=== PATIENT | female | born 1990 | race African-American/Black ===

== ENCOUNTER 2017-07-25 16:53 | Emergency (ER) | payer OTHER ==
[2017-07-25] MEDS ORDERED: IBUPROFEN 800 MG TABLET PO ONE (17:15)
--- NOTE | 2017-07-25 17:15 | ER Document Report ---
ED GI/ - General Chief Complaint: Pelvic Pain Stated Complaint: PELVIC PAIN Time Seen by Provider: 07/25/17 17:10 Mode of Arrival: Ambulatory Information source: Patient Notes: Patient is a 26-year-old female who presents to the ER today for right lower quadrant abdominal pain. Patient admits to knowing that she has a cyst on that right ovary, has a history of a left ovarian torsion and had surgery to remove the left ovary. She admits that she saw the [employer] 2 days ago and they placed her on MetroGel for bacterial vaginosis. She admits to some white vaginal discharge. She has not started the MetroGel yet. She denies any back pain, history of kidney stones, hematuria, fever, chills, nausea, vomiting. TRAVEL OUTSIDE OF THE [place] IN LAST 30 DAYS: No - Related Data Allergies/Adverse Reactions: john Allergy (Verified 07/25/17 16:53) Past Medical History - General Information source: Patient - Social History Smoking Status: Never Smoker Family History: Reviewed & Not Pertinent - Past Medical History Cardiac Medical History: Denies: Hx Heart Attack, Hx Hypertension Pulmonary Medical History: Denies: Hx Asthma Neurological Medical History: Denies: Hx Cerebrovascular Accident, Hx Seizures GI Medical History: Denies: Hx Hepatitis, Hx Hiatal Hernia, Hx Ulcer Musculoskeltal Medical History: Infectious Medical History: Denies: Hx Hepatitis Past Surgical History: Reports: Hx Gynecologic Surgery - left ovary and cyst removed. Denies: Hx Hysterectomy, Hx Mastectomy, Hx Open Heart Surgery, Hx Pacemaker - Immunizations Immunizations up to date: Yes Hx Diphtheria, Pertussis, Tetanus Vaccination: No Review of Systems - Review of Systems Constitutional: No symptoms reported EENT: No symptoms reported Cardiovascular: No symptoms reported Respiratory: No symptoms reported Gastrointestinal: No symptoms reported Genitourinary: No symptoms reported Female Genitourinary: See HPI Musculoskeletal: No symptoms reported Skin: No symptoms reported Hematologic/Lymphatic: No symptoms reported Neurological/Psychological: No symptoms reported Physical Exam - Vital signs Vitals: Temp Pulse Resp BP Pulse Ox 98.0 F 84 16 125/67 100 07/25/17 17:01 07/25/17 17:01 07/25/17 17:01 07/25/17 17:01 07/25/17 17:01 - Notes Notes: PHYSICAL EXAMINATION: GENERAL: Well-appearing and in no acute distress. HEAD: Atraumatic, normocephalic. EYES: Pupils equal round and reactive to light, extraocular movements intact, sclera anicteric, conjunctiva are normal. ENT: ear canals without erythema or foreign body, TMs pearly duggan with good bony landmarks, nares patent, oropharynx clear without exudates. Moist mucous membranes. NECK: Normal range of motion, supple without lymphadenopathy LUNGS: CTAB and equal. No wheezes rales or rhonchi. HEART: Regular rate and rhythm without murmurs ABDOMEN: Soft, no tenderness. No guarding, no rebound BACK: no vertebral tenderness, normal ROM GI/: no CVA tenderness EXTREMITIES: Normal range of motion, no pitting edema. No cyanosis. NEUROLOGICAL: Cranial nerves grossly intact. Normal sensory/motor exams. PSYCH: Normal mood, normal affect. SKIN: Warm, Dry, normal turgor, no rashes or lesions noted Course - Re-evaluation Re-evalutation: 07/25/17 20:20 Transvaginal ultrasound reports a complex ovarian cyst on the right ovary which is known, no acute abnormality, no evidence of torsion. - Vital Signs Vital signs: Temp Pulse Resp BP Pulse Ox 98.0 F 84 16 125/67 100 07/25/17 17:01 07/25/17 17:01 07/25/17 17:01 07/25/17 17:01 07/25/17 17:01 Discharge - Discharge Clinical Impression: RLQ abdominal pain UTI (urinary tract infection) Qualifiers: Urinary tract infection type: site unspecified Hematuria presence: with hematuria Qualified Code(s): N39.0 - Urinary tract infection, site not specified Condition: Stable Disposition: HOME, SELF-CARE Additional Instructions: Return immediately for any new or worsening symptoms. Follow up with primary care provider, call tomorrow to make followup appointment. Prescriptions: Cephalexin [Cephalexin 250 MG Tablet] 1 tab PO BID #6 tablet
--- NOTE | 2017-07-25 19:31 | RADIOLOGY REPORT (SQ) ---
EXAM DESCRIPTION: U/S NON OB PEL TV W/DOPPLER COMPLETED DATE/TIME: 07/25/2017 6:58 pm REASON FOR STUDY: rlq pain, hx ovarian torsion COMPARISON: 01/17/2016 TECHNIQUE: Dynamic and static grayscale images acquired of the pelvis via transvaginal approach and recorded on PACS. Additional selected color Doppler and spectral images recorded. LIMITATIONS: None. FINDINGS: UTERUS: Contour normal. No mass. ENDOMETRIAL STRIPE: No focal or generalized thickening. No masses. CERVIX: No nabothian cysts. RIGHT OVARY: Re- demonstration of a complex cystic lesion within the right ovary. RIGHT OVARY DOPPLER: Normal arterial vascular flow without evidence for torsion. LEFT OVARY: Ovary not visualized. LEFT OVARY DOPPLER: Normal arterial vascular flow without evidence for torsion. FREE FLUID: None noted. OTHER: No other significant finding. MEASUREMENTS: UTERUS: 8.5 x 4.8 x 6.2 cm ENDOMETRIAL STRIPE: 1.2 cm RIGHT OVARY: 5.3 x 4.5 x 4.2 cm LEFT OVARY: Not visualized. IMPRESSION: Stable sonographic appearance of the uterus and adnexae. The left ovary is again not vi sualized. A complex cystic lesion is again seen within the right ovary. TECHNICAL DOCUMENTATION: JOB ID: [id number] joiz- All Rights Reserved Reading location - IP/workstation name: [email or web address]
[2017-07-25 20:08] VITALS: BP 112/72
[2017-07-25 20:11] LABS: APPEARANCE,URINE SLIGHTLY-CLOUDY; BILIRUBIN,URINE NEGATIVE (NEGATIVE); COLOR,URINE YELLOW; GLUCOSE, URINE NEGATIVE (NEGATIVE); KETONES,URINE NEGATIVE (NEGATIVE); LEUKOCYTE ESTERASE,URINE SMALL (NEGATIVE); NITRITE,URINE NEGATIVE (NEGATIVE); PROTEIN,URINE NEGATIVE (NEGATIVE); URINE SPECIFIC GRAVITY 1.031
== END 2017-07-25 20:08 | disposition home or self-care (01) ==
LOC: ER 16:53
DX: N39.0 Urinary tract infection, site not specified (principal); R31.9 Hematuria, unspecified; N83.201 Unspecified ovarian cyst, right side; R10.31 Right lower quadrant pain; Z91.018 Allergy to other foods
CPT/HCPCS: 76830; 81001; 93976; 99284